=== PATIENT | male | born 1945 | race Caucasian/White ===

== ENCOUNTER 2018-04-12 10:31 | Day surgery (SDC) | payer MEDICARE ==
[~2018-04-12] VITALS: Ht 180.3 cm; Wt 95.6 kg
[2018-04-12 11:33] VITALS: BP 149/66; PULSE 59; TEMP 98
[2018-04-12] MEDS ORDERED: ASPIRIN E.C. 8181 MG PO (11:38)
[2018-04-12] MEDS ORDERED: HYGROTON 2525 MG/TAB PO (11:38)
[2018-04-12] MEDS ORDERED: LIPITOR 10MG10 MG PO (11:39)
[2018-04-12] MEDS ORDERED: PENTASA500 MG PO (11:40)
[2018-04-12] MEDS ORDERED: OMEGA-3 1000 MG1 CAP PO (11:40)
[2018-04-12] MEDS ORDERED: K-TAB10 PO (11:41)
[2018-04-12] MEDS ORDERED: THE MEDICINE S200 M2 PO (11:41)
[2018-04-12 15:50] VITALS: BP 158/90; PULSE 64; TEMP 97.7
[2018-04-12 16:05] VITALS: BP 138/67; PULSE 65
[2018-04-12 16:20] VITALS: BP 141/69; PULSE 54
[2018-04-12 16:21] VITALS: TEMP 96.9
[2018-04-12] MEDS ORDERED: ROXICODONE 55 MG/TAB PO (16:21)
[2018-04-12] MEDS ORDERED: TYLENOL 500MG500 MG PO (16:21)
[2018-04-12 16:35] VITALS: BP 130/63; PULSE 61
== END 2018-04-12 17:25 | disposition home or self-care (01) ==
LOC: SDCO 10:31
DX: K43.0 Incisional hernia with obstruction, without gangrene (principal); E78.5 Hyperlipidemia, unspecified; E87.6 Hypokalemia; I10 Essential (primary) hypertension; I25.10 Atherosclerotic heart disease of native coronary artery without angina pectoris; K51.90 Ulcerative colitis, unspecified, without complications
CPT/HCPCS: C1713; C1781; J0690; J1100; J1885; J2405; J2704; J2710; J3010; J7120